=== PATIENT | male | born 1955 | race Caucasian/White ===

== ENCOUNTER 2023-08-29 09:29 | Emergency (ER) | payer MEDICARE, OTHER ==
[~2023-08-29] VITALS: Ht 185.4 cm; Wt 108.0 kg
[2023-08-29 09:46] VITALS: BP 142/101
[2023-08-29] MEDS ORDERED: MELATONIN5 M1 PO (09:49)
[2023-08-29] MEDS ORDERED: ACYC200 PO (09:49)
[2023-08-29] MEDS ORDERED: GABA300 PO (09:49)
[2023-08-29] MEDS ORDERED: CEPH500 PO (10:32)
== END 2023-08-29 10:47 | disposition home or self-care (01) ==
LOC: ER 09:29
DX: S51.811A Laceration without foreign body of right forearm, initial encounter (principal); W26.0XXA Contact with knife, initial encounter; Z88.8 Allergy status to other drugs, medicaments and biological substances
CPT/HCPCS: 12032; 90702; 90715; 99282-25; A9270